=== PATIENT | male | born 1935 | race Caucasian/White ===

== ENCOUNTER 2017-01-05 14:29 | Emergency (ER) | payer MEDICARE, OTHER ==
[~2017-01-05] VITALS: Ht 165.1 cm; Wt 70.5 kg
[~2017-01-05 14:29] MED LIST: ALBU90AE IH; BRIM10DR14 OP; CALC-243 PO; COD1CAPS6 PO; FAMO20T PO; GARL10002 PO; LATA2.5D6 OP; LIP40 PO; OMEP20CA11 PO
[2017-01-05 14:37] VITALS: BP 158/90; PULSE 85; RESP 15; O2SAT 95
--- NOTE | 2017-01-05 14:42 | ED.REPORT ---
HPI-Extremity Problem Lower Date of Service January 05, 2017 ED Provider: Tyrel Stanton MD The patient is an 81 year old male who presents to the emergency department complaining of ongoing right knee pain that began 2 weeks ago. He was evaluated and had an x-ray 1 week ago. He was told he has bad arthritis and it is "bone on bone." He has an appointment with his regular doctor for an orthopedic referral on January 22. He has been taking Tramadol for his pain. His family brought him today because he is not able to walk on it and he is unable to sleep due to the pain. He had a joint injection last week with some relief. He denies fever, chills, nausea or vomiting. Nursing Notes Stated Complaint: RT KNEE PAIN,SWOLLEN Chief Complaint: Extremity Trauma Nursing Notes Reviewed: Yes Allergies: Coded Allergies: Sulfa (Sulfonamide Antibiotics) (Verified Adverse Reaction, Intermediate, nausea, 01/05/17) Scheduled Atorvastatin (Lipitor) 40 Mg Tablet 40 MG PO DAILY Brimonidine Tartrate (Brimonidine 0.15% Oph Soln) 10 Ml Drops 1 DROP OP BID instill into left eye Calcium Carbonate/Vitamin D3 (Calcium 600 + Vit D Tablet) 1 Each Tablet 1,500 MG PO DAILY Cod Liver Oil (Cod Liver Oil) 1 Each Capsule 1 EACH PO DAILY Garlic (Garlic) 1,000 Mg Capsule 1,000 MG PO DAILY Latanoprost (Latanoprost) 2.5 Ml Drops 1 GTT OP HS instill left eye Omeprazole (Omeprazole) 20 Mg Capsule.dr 20 MG PO DAILY General Time Seen by MD: 14:35 Chief Complaint Knee injury right Hx Obtained From: Patient Arrived By: Walk-in Onset Occurred: More than a week ago... (2 weeks) Symptom Duration: Since onset Caused by: Mechanism unknown Location: : Knee right Quality: Painful Severity: Current: Moderate Severity: Maximum: Moderate Exacerbated by: Movement Recent Healthcare: No recent hospitalization, Recent doctor visit Similar Sx Previous: Yes Past Medical History Family History Noncontributory Smoking History Unknown if Ever Smoker Social History Other Social History: Good social support, , Local resident Ambulatory Status Independent Review of Systems Constitutional: Denies: Chills, Fever Musculoskeletal: Reports: Joint pain Complete sys rev & neg: except as marked. GI: Denies: Nausea, Vomiting Physical Exam Initial Vital Signs Vital Signs (First) Date Time Temp Pulse Resp B/P Pulse Ox O2 Delivery O2 Flow Rate FiO2 01/05/17 14:37 36.6 85 15 158/90 95 Room Air Initial VS: Reviewed Head / Eyes: Atraumatic, Normocephalic, PERRL ENT: Mucous membranes moist, Conjunctiva normal, No scleral icterus Neck: Supple, Non-tender, Full range of motion Respiratory: Breath sounds normal, Clear to auscultation, No respiratory distress Cardiovascular: Regular rate & rhythm, Heart sounds normal, Intact distal pulses Abdomen / GI: Soft, Non-tender, No guarding, No rebound, No distention Lymphatic: No lymphadenopathy Upper Extremities: Vascular intact, Neuro intact, No swelling, No tenderness Skin: Warm, Dry, No cyanosis Neurologic: Alert, Oriented, Nonfocal Psychiatric: Mood/affect normal, Behavior normal, Normal thought content Lower Extremity / Pelvis / MS: Neurologic intact, Vascular intact Right knee: no effusion, redness, warmth or obvious swelling. No evidence of septic arthritis. There are some bony nodularities about the medial joint space of the right knee. No calf swelling or tenderness. Ankle / Foot: Neurologic intact, Vascular intact General/Constitutional: Awake, Alert, No acute distress, Cooperative Re-Eval/Medical Decision Med Decision/Clinical Course The patient is an 81 year old male who presents to the emergency department complaining of ongoing right knee pain that began 2 weeks ago. He was evaluated and had an x-ray 1 week ago. He was told he has bad arthritis and it is "bone on bone." He has an appointment with his regular doctor for an orthopedic referral on January 22. He has been taking Tramadol for his pain. His family brought him today because he is not able to walk on it and he is unable to sleep due to the pain. He had a joint injection last week with some relief. He denies fever, chills, nausea or vomiting. Patient has no history of gastric ulcers or underlying renal disease. Here in the emergency department he is afebrile stable vital signs. Examination of his knee reveals no findings suggestive of septic arthritis, cellulitis, infection or acute traumatic injury/ fracture. I do not feel that imaging studies are indicated or would be clinically useful. Currently he is only taking tramadol though I see no reason that he cannot do a short course of nonsteroidal anti-inflammatories. Moreover , he could also be taking Tylenol for his pain. Here he was treated with 30 mg of intramuscular Toradol with good effect. He is advised to starting tomorrow take 400 mg of ibuprofen 3 times a day along with 650 mg of Tylenol 3 times a day. He will use tramadol as needed for breakthrough pain. He is referred to orthopedic surgery for further evaluation. Prior to discharge follow-up and return precautions were reviewed in detail with the patient who verbalized understanding and agreement with the plan. The patient was discharged in stable condition. Source of Hx: Old records, Family Re-Evaluation/Progress : Time of Eval: 15:21 Re-Evaluation/Progress Note: Discussed diagnosis and plan for discharge. Counseled Regarding: Diagnosis, Need for follow-up, When/why to return to ED Discharge & Departure Impression: Primary Impression: Right knee pain Chronicity: acute Qualified Code: M25.561 - Pain in right knee Additional Impression: Osteoarthritis of right knee Osteoarthritis type: primary Qualified Code: M17.11 - Unilateral primary osteoarthritis, right knee Disposition: Home Discharge Condition All VS Reviewed: Yes Condition: Stable Additional Instructions: Thank you for seeking care at the emergency room. Our primary goal today in the ED was to evaluate you for any life-threatening conditions. Your evaluation was reassuring. Continue taking the Tramadol as previously prescribed. You were given a Toradol injection in the emergency department today. Do not take any ibuprofen today. Starting tomorrow take 400 mg ibuprofen 3 times daily with food and water for up to the next week. You can also take 650 mg Tylenol three times daily. We have given you a referral to the orthopedist, Dr. Hagen. Call his office today to schedule an appointment for next week. You should return to the ED immediately if you develop increased pain or swelling, numbness, weakness, fevers, chills, vomiting, or any other concerning signs or symptoms. Thank you for letting us partake in your care today. Referrals: Peyton Novoa DO (PCP) Gonzalo Hagen Attestation Portions of this note were transcribed by Leanne Whatley. I, Dr. Stanton personally performed the history, physical exam and medical decision-making; I reviewed and confirmed the accuracy of the information in the transcribed note. Signed by: Javier Quick, 01/05/2017 at 1540. copies to: Peyton Novoa DO; Gonzalo Hagen Beck O MD January 05, 2017 14:42 Chacorta,Leanne Bowers January 05, 2017 15:11
== END 2017-01-05 15:45 | disposition home or self-care (01) ==
LOC: SED 14:29
DX: M17.11 Unilateral primary osteoarthritis, right knee (principal); Z88.2 Allergy status to sulfonamides
CPT/HCPCS: 96372; 99283; J1885